=== PATIENT | female | born 1965 | race Caucasian/White ===

== ENCOUNTER → 2017-01-18 | Outpatient (CLI) | payer OTHER, MEDICAID | LOC: FIMAGING 10:51 | PROVIDERS: ATTEND Internal Medicine Infectious Disease | DX: R04.2 Hemoptysis (principal); R91.1 Solitary pulmonary nodule ==

== ENCOUNTER → 2017-01-23 | Outpatient (CLI) | payer OTHER, MEDICAID ==
[~2017-01-23] MED LIST: GADOBUTROL 10 ML VIAL IVP ONE
== END ==
LOC: FIMAGING 16:35
PROVIDERS: ATTEND Internal Medicine Infectious Disease
DX: Z09 Encounter for follow-up examination after completed treatment for conditions other than malignant neoplasm (principal); R94.02 Abnormal brain scan; R93.8 Abnormal findings on diagnostic imaging of other specified body structures; R51 Headache; M54.9 Dorsalgia, unspecified
CPT/HCPCS: 70553; 72157; A9585

== ENCOUNTER → 2017-01-30 | Outpatient (CLI) | payer OTHER, MEDICAID | LOC: FIMAGING 12:45 | PROVIDERS: ATTEND Internal Medicine Infectious Disease | DX: B44.9 Aspergillosis, unspecified (principal); A43.9 Nocardiosis, unspecified; R91.8 Other nonspecific abnormal finding of lung field ==

== ENCOUNTER → 2018-03-02 | Outpatient (CLI) | payer OTHER, MEDICAID | LOC: FIMAGING 07:38 | PROVIDERS: ATTEND Internal Medicine Infectious Disease | DX: A43.9 Nocardiosis, unspecified (principal) ==

== ENCOUNTER → 2018-03-20 | Outpatient (CLI) | payer OTHER, MEDICAID | LOC: FIMAGING 10:10 | PROVIDERS: ATTEND Internal Medicine Infectious Disease | DX: R91.1 Solitary pulmonary nodule (principal); J47.9 Bronchiectasis, uncomplicated; A43.0 Pulmonary nocardiosis ==

== ENCOUNTER → 2018-05-10 | Outpatient (CLI) | payer OTHER, MEDICAID | LOC: BMCIMAGING 13:15 | PROVIDERS: ATTEND Family Medicine | DX: D25.9 Leiomyoma of uterus, unspecified (principal) ==

== ENCOUNTER → 2019-04-01 | Outpatient (CLI) | payer OTHER, MEDICAID | LOC: FIMAGING 14:35 ==